=== PATIENT | female | born 1965 | race Caucasian/White ===

== ENCOUNTER → 2020-05-02 | Outpatient (CLI) | payer OTHER ==
[~2020-05-02] MED LIST: ASPIRIN EC81 MG PO; ATORVASTATIN CA40 MG PO; BACLOFEN10 MG PO; FAMOTIDINE40 MG PO; IBUPROFEN800 MG PO; ISOSORBIDE MONO30 MG PO; K-TAB ER10 MEQ PO; LEVOTHYROXINE137 MCG PO; LIORESAL TAB 1010 MG PO; LOPRESSOR 25 MG25 MG PO; MOBIC15 MG PO; NITROSTAT0.4 MG SL; OMNICEF 300 MG300 MG PO; POTASSIUM CHLO20 ME1 PO; TAMIFLU75 MG PO; TRAZODONE HCL100 MG PO; VITAMIN D21250 MCG PO; ZOCOR40 MG PO
== END ==
LOC: ECHO 11:00 → NM 13:00
DX: R07.9 Chest pain, unspecified (principal); R06.02 Shortness of breath; R94.31 Abnormal electrocardiogram [ECG] [EKG]; I27.20 Pulmonary hypertension, unspecified; R93.1 Abnormal findings on diagnostic imaging of heart and coronary circulation; I34.0 Nonrheumatic mitral (valve) insufficiency
CPT/HCPCS: ECHO; 78452; 93017; 93306; A9502; J2785

== ENCOUNTER → 2020-05-17 | Outpatient (CLI) | payer OTHER ==
[2020-05-17 12:23] LABS: HEMOGLOBIN 14.9 gm/dl (12.3-15.3); RED BLOOD COUNT 4.75 M/UL (4.00-5.10); WHITE BLOOD COUNT 7.2 K/UL (4.5-11.0)
== END ==
LOC: LAB 11:07
PROVIDERS: Internal Medicine Interventional Cardiology
DX: E78.00 Pure hypercholesterolemia, unspecified (principal); R07.9 Chest pain, unspecified; R94.39 Abnormal result of other cardiovascular function study; R94.31 Abnormal electrocardiogram [ECG] [EKG]
CPT/HCPCS: 36415; 80048; 85025; 85610; 85730; 93005

== ENCOUNTER → 2020-05-21 | Outpatient (CLI) | payer OTHER ==
[~2020-05-21] VITALS: Ht 172.7 cm; Wt 106.1 kg
== END ==
LOC: CATH 09:28
DX: R94.39 Abnormal result of other cardiovascular function study (principal); I20.9 Angina pectoris, unspecified; J44.9 Chronic obstructive pulmonary disease, unspecified; E78.5 Hyperlipidemia, unspecified; Z87.891 Personal history of nicotine dependence; Z79.82 Long term (current) use of aspirin; Z79.899 Other long term (current) drug therapy
CPT/HCPCS: 99152; C1769; J1644; J2250; J3010; J7030; Q9967